=== PATIENT | male | born 1990 | race African-American/Black ===

== ENCOUNTER 2022-01-28 20:04 | Inpatient (IN) ==
[2022-01-28] MEDS ORDERED: dexAMETHasone**PF** 10 MG/ML VIAL IV ONE (22:24)
[2022-01-28] MEDS ORDERED: SODIUM CHLORIDE 0.9% 1000ML 1,000 ML IV ONE (22:24)
[2022-01-28] MEDS ORDERED: AMPICILLIN/SULBACTAM SOD 3,000 MG in 0.9 % SODIUM CHLORIDE 100 ML IV STA (22:24)
[2022-01-28 22:26] LABS: Basophils # (auto) 0.03 K/uL (0-0.2); Basophils % (auto) 0.2 %; Eosinophils # (auto) 0.27 K/uL (0-0.5); Eosinophils % (auto) 1.9 %; Hematocrit (blood only) 40.8 % (42-52); Hemoglobin 14.2 g/dL (14.0-18.0); Immature Granulocytes # (auto) 0.06 K/uL (0.00-0.02); Immature Granulocytes % (auto) 0.4 %; Lymphocytes # (auto) 1.36 K/uL (1.2-3.4); Lymphocytes % (auto) 9.5 %; Mean Corpuscular Hemoglobin 30.3 pg (25-34); Mean Corpuscular Hgb Conc 34.8 g/dL (32-36); Mean Corpuscular Volume 87.2 fL (80-100); Mean Platelet Volume 10.5 fL (7.4-10.4); Monocytes # (auto) 1.27 K/uL (0.11-0.59); Monocytes % (auto) 8.8 %; Neutrophils # (auto) 11.38 K/uL (1.4-6.5); Neutrophils % (auto) 79.2 %; Platelet Count 351 K/uL (130-400); RDW Coefficient of Variation 13.1 % (11.5-14.5); RDW Standard Deviation 41.8 fL (36.4-46.3); Red Blood Count 4.68 M/uL (4.7-6.1); White Blood Count 14.37 K/uL (4.8-10.8)
--- NOTE | 2022-01-28 22:30 | Emergency Department Note ---
History of Present Illness General Chief complaint: Head Injury, Minor Stated complaint: LEFTSIDE HEAD PAIN, WAS HERE THIS MORING Time Seen by Provider: 01/28/22 22:17 History of Present Illness Maximum Pain Intensity: 10 This 31 year old male patient presents to the ED today for evaluation of "left side head problems". Patient states he was here overnight for headache. He has been taking ibuprofen and cyclobenzaprine without relief of his symptoms. The patient states now he is experiencing pain into his jaw, left ear, and is having difficulty swallowing because "the left side is so swollen". Patient denies any fever but he has had chills all day today. He states his last dose of ibuprofen was at about 3 PM. He rates his pain 10/10 and states he generally feels weak. He denies any other associated symptoms. No chest pain or shortness of breath. He is able to swallow and tolerate his secretions. No history of similar symptoms. Home Medications Medication Instructions Recorded Confirmed Type cyclobenzaprine 10 mg tablet 10 mg PO TID PRN #14 tab 01/28/22 01/29/22 Rx ibuprofen 800 mg tablet 800 mg PO TID PRN #20 tab 01/28/22 01/29/22 Rx Allergies Allergy/AdvReac Type Severity Reaction Status Date / Time No Known Allergies Allergy Unverified 01/29/22 01:30 Past Med/Surg History Medical History No pertinent past medical history Social History Smoking Status: Current every day smoker Tobacco Type: Cigarettes and E-cigarettes / Vaping Hx Substance Use: No Preferred Language: Yi Communication Ability: Effective Earring Maker Required: No Beliefs That Will Affect Care: None Current Living Situation: Family Feels Safe at Home: Yes Safety Concerns: Feels Safe At This Time Review of Systems A total of 10 systems reviewed and were otherwise negative Physical Exam Vital Signs Vital Signs - 24 hr 01/28/22 20:35 01/28/22 21:49 01/28/22 23:02 Temperature 36.5 C Temperature Source Temporal Artery Scan Pulse Rate 81 Pulse Rate [Apical] 80 90 Pulse Rate from SpO2 Sensor Pulse Rhythm [Apical] Respiratory Rate 16 32 H 28 H Respiratory Effort / Characteristics Non-Labored Moaning Other Splinting (from pain) Respiratory Depth Normal Shallow Shallow Respiratory Pattern Blood Pressure 96/47 L Blood Pressure [Left Arm] 152/93 H 163/91 H Blood Pressure Mean 63 Blood Pressure Mean [Left Arm] 112 115 Pulse Oximetry 99 100 90 Oxygen Delivery Method Room Air Room Air Room Air Sepsis Recent Fever Within 48 Hours No Sepsis New/Unexplained Change in Mental Status No Sepsis Action Taken by Nursing No Action Required 01/29/22 01:22 01/29/22 01:30 01/29/22 02:00 Temperature Temperature Source Pulse Rate 79 88 Pulse Rate [Apical] 76 Pulse Rate from SpO2 Sensor 78 88 Pulse Rhythm [Apical] Regular Respiratory Rate 26 H 28 H 35 H Respiratory Effort / Characteristics Non-Labored Spontaneous Respiratory Depth Normal Respiratory Pattern Regular Blood Pressure 135/87 Blood Pressure [Left Arm] 135/87 Blood Pressure Mean 103 Blood Pressure Mean [Left Arm] 103 Pulse Oximetry 99 95 100 Oxygen Delivery Method Room Air Sepsis Recent Fever Within 48 Hours Sepsis New/Unexplained Change in Mental Status Sepsis Action Taken by Nursing VITALS: Vitals are noted on the nurse's note and reviewed by myself. Vital signs stable. GENERAL: This is a 31-year-old black male, in no acute distress, nondiaphoretic, well-developed well-nourished. SKIN: The skin was without rashes, erythema, edema, or bruising. There is no tenting of the skin. Capillary refill less than 2 seconds. HEAD: Normocephalic atraumatic. EARS: External auditory canals clear, tympanic membranes pearly parsons without erythema or effusion bilaterally. EYES: Pupils equal round and reactive to light and accommodation. Conjunctivae without injection, sclerae without icterus. Extraocular movements intact. NOSE: Patent, turbinates without inflammation or discharge. No sinus tenderness. MOUTH: Mucous membranes moist. Left tonsillar and peritonsillar edema with edema extending to the soft palate. This does cause some uvular deviation. There is erythema of the pharynx. No obvious exudate. Airway patent. Tongue does not deviate. NECK: Supple without nuchal rigidity. Anterior cervical lymphadenopathy. No thyromegaly. Cervical spine is nontender. No JVD. HEART: Regular rate and rhythm without murmurs gallops or rubs. LUNGS: Clear to auscultation bilaterally without wheezes, rales or rhonchi. No retractions or accessory muscle use. MUSCULOSKELETAL: No muscle atrophy, erythema, or edema noted. Full range of motion without joint tenderness in all extremities. No tenderness to palpation. Normal gait. Strength 5/5 throughout. NEURO: Patient was alert and oriented to person place and time. No focal neurological deficits. Course Course The patient was seen and evaluated as above. An order was placed for continuous cardiac monitoring. The monitor shows a normal sinus rhythm at a rate of 74 bpm. IV access obtained, labs drawn. Patient hydrated with IV fluids, medicated with Decadron, Unasyn. Patient was medicated with IV morphine and Zofran due to persistent pain and concern he would not be able to lie still for CT scan. Labs reviewed by myself. Imaging performed and reviewed by myself and radiologist as noted. I discussed the case with my attending physician. I discussed the findings with the patient at bedside. Mended admission and advised him that the CHAIN PEGGER would need to be drained. I discussed the case with Tavares Canela PA-C with [facility]. She was agreeable and will discuss the case with Dr. Henriquez to add him onto the schedule for tomorrow. I discussed the case with the manager state. Discussed the case with Dr. Middleton, [facility] hospitalist physician. He did agree to see the patient for admission. Administered Medications Ampicillin Sodium/Sulbactam Sodium 3,000 mg/ Sodium Chloride 108 mls @ 200 mls /hr IV Q6H [facility]; Protocol Stop: 02/08/22 05:59 Last Infusion: 01/29/22 13:18 Dose: 0 mls/hr Documented by: [id number] Admin: 01/29/22 12:45 Dose: 200 mls/hr Documented by: [id number] Infusion: 01/29/22 06:57 Dose: 0 mls/hr Documented by: [id number] Admin: 01/29/22 06:11 Dose: 200 mls/hr Documented by: [id number] Sodium Chloride (Nss 1000ml) 1,000 mls @ 75 mls/hr IV .[id number] ONE Stop: 01/29/22 17:59 Last Admin: 01/29/22 06:11 Dose: 75 mls/hr Documented by: [id number] Nicotine (Nicotine 21 Mg/24 Hr Tdsy) 21 mg TD QAM [facility] Stop: 02/28/22 04:39 Last Admin: 01/29/22 06:14 Dose: 21 mg Documented by: [id number] Tramadol HCl (Tramadol Hcl 50 Mg Tablet) 25 - 50 mg PO Q4H PRN PRN Reason: Pain Stop: 02/28/22 04:39 Last Admin: 01/29/22 05:32 Dose: 50 mg Documented by: [id number] Discontinued Medications Dexamethasone Sodium Phosphate (DexamethasonePf 10 Mg/Ml Vial) 10 mg IV NOW ONE Stop: 01/28/22 22:25 Last Admin: 01/28/22 22:33 Dose: 10 mg Documented by: [id number] Sodium Chloride (Nss 1000ml) 1,000 mls @ 999 mls/hr IV .Q1H1M ONE Stop: 01/28/22 23:24 Last Infusion: 01/29/22 01:23 Dose: 0 mls/hr Documented by: [id number] Admin: 01/28/22 22:33 Dose: 999 mls/hr Documented by: [id number] Ampicillin Sodium/Sulbactam Sodium 3,000 mg/ Sodium Chloride 108 mls @ 200 mls/hr IV NOW STA; Protocol Stop: 01/28/22 22:56 Last Infusion: 01/29/22 01:23 Dose: 0 mls/hr Documented by: [id number] Admin: 01/28/22 23:18 Dose: 200 mls/hr Documented by: [id number] Ioversol (Optiray 320 100ml) 100 ml IV ONCE ONE Stop: 01/28/22 23:45 Last Admin: 01/28/22 23:45 Dose: 93 ml Documented by: [id number] Ketorolac Tromethamine (Ketorolac Tromethamine 15 Mg/Ml Vial) 15 mg IV NOW STA Stop: 01/29/22 01:46 Last Admin: 01/29/22 01:56 Dose: 15 mg Documented by: [id number] Morphine Sulfate (Morphine Sulfate 4 Mg/Ml 1 Ml Carp\\Vial) 4 mg IV NOW STA Stop: 01/28/22 23:12 Last Admin: 01/28/22 23:18 Dose: 4 mg Documented by: [id number] Ondansetron HCl (Ondansetron Inj 2 Mg/Ml 2 Ml Vial) 4 mg IV NOW STA Stop: 01/28/22 23:12 Last Admin: 01/28/22 23:18 Dose: 4 mg Documented by: [id number] Medical Decision Making Differential Diagnosis Migraine headache, meningitis, sinusitis, CHAIN PEGGER, tonsillitis, otitis, CO exposure, ICH, SAH, infection, tumor, headache, sinus thrombosis, arterial dissection, as well as other pathologies. Medical Records Attestation: I reviewed the patient's medical records. Home Medications Current Medication List: was personally reviewed by me Laboratory Data Attestation: I reviewed the patient's lab results. Leukocytosis of 14,000. No anemia or thrombocytopenia. Renal, hepatic function and electrolytes without significant abnormality. Strep testing positive. Procalcitonin 0.09. COVID-19 testing negative. Result diagrams: 01/29/22 05:12 01/29/22 05:12 Lab Results 01/28/22 01/28/22 01/28/22 Range/Units 20:20 22:12 22:12 WBC 14.37 H (4.8-10.8) K/uL RBC 4.68 L (4.7-6.1) M/uL Hgb 14.2 (14.0-18.0) g/dL Hct 40.8 L (42-52) % MCV 87.2 (80-100) fL MCH 30.3 (25-34) pg MCHC 34.8 (32-36) g/dL RDW Std Deviation 41.8 (36.4-46.3) fL RDW Coeff of Anil 13.1 (11.5-14.5) % Plt Count 351 (130-400) K/uL MPV 10.5 H (7.4-10.4) fL Immature Gran % (Auto) 0.4 % Neut % (Auto) 79.2 % Lymph % (Auto) 9.5 % Ray % (Auto) 8.8 % Eos % (Auto) 1.9 % Baso % (Auto) 0.2 % Neut # (Auto) 11.38 H (1.4-6.5) K/uL Lymph # (Auto) 1.36 (1.2-3.4) K/uL Ray # (Auto) 1.27 H (0.11-0.59) K/uL Eos # (Auto) 0.27 (0-0.5) K/uL Baso # (Auto) 0.03 (0-0.2) K/uL Immature Gran # (Auto) 0.06 H (0.00-0.02) K/uL PT (9.0-12.0) Seconds INR (0.9-1.1) APTT (21.0-31.0) Seconds PTT Ratio Sodium 137 (136-145) mmol/L Potassium 4.1 (3.5-5.1) mmol/L Chloride 103 (98-107) mmol/L Carbon Dioxide 24 (21-32) mmol/L Anion Gap 10 (3-11) BUN 9 (6-23) mg/dl Creatinine 1.10 (0.6-1.4) mg/dl Est Cr Clr Drug Dosing 112.2 ml/min Est GFR ( Amer) 102.4 ml/min Est GFR (Non-Af Amer) 88.4 ml/min BUN/Creatinine Ratio 8.2 L (10-20) Glucose 86 (70-99(Fasting)) mg/dl Calcium 9.6 (8.5-10.1) mg/dl Total Bilirubin 0.6 (0.2-1.0) mg/dl AST 16 (13-39) U/L ALT 22 (7-52) U/L Alkaline Phosphatase 83 (34-104) U/L Total Protein 7.8 (6.0-8.3) gm/dl Albumin 4.4 (3.4-5.0) gm/dl Globulin 3.4 (2.5-4.0) gm/dl Albumin/Globulin Ratio 1.3 (0.9-2) Procalcitonin (0-0.5) ng/ml SARS-CoV-2, RNA, NAAT (NEGATIVE) Group A Strep (PCR) DETECTED A (NotDetected) 01/28/22 01/29/22 01/29/22 Range/Units Unknown 00:36 00:36 WBC (4.8-10.8) K/uL RBC (4.7-6.1) M/uL Hgb (14.0-18.0) g/dL Hct (42-52) % MCV (80-100) fL MCH (25-34) pg MCHC (32-36) g/dL RDW Std Deviation (36.4-46.3) fL RDW Coeff of Anil (11.5-14.5) % Plt Count (130-400) K/uL MPV (7.4-10.4) fL Immature Gran % (Auto) % Neut % (Auto) % Lymph % (Auto) % Ray % (Auto) % Eos % (Auto) % Baso % (Auto) % Neut # (Auto) (1.4-6.5) K/uL Lymph # (Auto) (1.2-3.4) K/uL Ray # (Auto) (0.11-0.59) K/uL Eos # (Auto) (0-0.5) K/uL Baso # (Auto) (0-0.2) K/uL Immature Gran # (Auto) (0.00-0.02) K/uL PT 11.1 (9.0-12.0) Seconds INR 1.0 (0.9-1.1) APTT 31.6 H (21.0-31.0) Seconds PTT Ratio 1.1 Sodium (136-145) mmol/L Potassium (3.5-5.1) mmol/L Chloride (98-107) mmol/L Carbon Dioxide (21-32) mmol/L Anion Gap (3-11) BUN (6-23) mg/dl Creatinine (0.6-1.4) mg/dl Est Cr Clr Drug Dosing ml/min Est GFR ( Amer) ml/min Est GFR (Non-Af Amer) ml/min BUN/Creatinine Ratio (10-20) Glucose (70-99(Fasting)) mg/dl Calcium (8.5-10.1) mg/dl Total Bilirubin (0.2-1.0) mg/dl AST (13-39) U/L ALT (7-52) U/L Alkaline Phosphatase (34-104) U/L Total Protein (6.0-8.3) gm/dl Albumin (3.4-5.0) gm/dl Globulin (2.5-4.0) gm/dl Albumin/Globulin Ratio (0.9-2) Procalcitonin 0.09 (0-0.5) ng/ml SARS-CoV-2, RNA, NAAT NEGATIVE (NEGATIVE) Group A Strep (PCR) (NotDetected) Imaging Data Radiologist's Impression: Soft Tissue Neck CT 01/28/22 22:24 CT soft tissue neck w con HISTORY: 31 years-old Male left sore throat, ?CHAIN PEGGER acute dysphasia with possible pharyngitis COMPARISON: None TECHNIQUE: Multiple axial CT images of the soft tissues of the neck were obtained following the intravenous ministration of 93 mL Optiray 320. A dose lowering technique was used consistent with the principals of JOSE L. FINDINGS: Moderate enlargement of the adenoid tonsils with enlargement of the left greater than right palatine tonsils. Streak artifact from dental amalgam hardware. There is an ill-defined fluid collection adjacent to left palatine tonsil measuring 1.9 x 1.2 x 2.0 cm. Moderate adjacent parapharyngeal edema extends into the lingula, parapharyngeal fat planes and inferiorly into the left aryepiglottic fold. There is partial opacification of the vallecula and piriform sinuses. Mucosal hyperemia also noted. The above findings result in near-complete effacement of the nasopharyngeal and upper oropharyngeal airway. The glottis and subglottic airway appears unremarkable. Normal thyroid, parotid and submandibular glands. Enlarged cervical chain lymph nodes measure up to 2.2 x 1.4 cm on the left. Residual thymic tissue anterior mediastinum. Unremarkable vascular structures of the neck. The imaged intracranial structures are unremarkable. No pneumothorax. Minimal mucosal thickening of the ethmoid and maxillary sinuses. Anterior endplate bridging osteophyte with mild intervertebral disc space narrowing noted at C6-C7. The mastoid air cells are clear. No acute fracture. IMPRESSION: 1. Enlargement of the adenoid, palatine and lingual tonsils compatible with acute tonsillitis/pharyngitis. There is a 2 cm peritonsillar abscess adjacent to left palatine tonsil with moderate adjacent parapharyngeal edema. 2. Above findings result in near-complete effacement of the nasopharyngeal and upper oropharyngeal airway. 3. Reactive cervical chain lymphadenopathy. ACT 112: Negative or not required by law. The above report was generated using voice recognition software. It may contain grammatical, syntax or spelling errors. Electronically signed by: Deepak Perry M.D. 01/29/2022 7:47 AM Patient: DALILA TOBAR(Male) : 88 Status: ER Date: 01/28/22 23:48 Room #: History: LEFT SIDE OF THROAT HURTS THE MOST, FEELS LIKE A BIG BALL STUCK IN THROAT HARD TO TALK AND SWALLOW Slices: [phone] Priors: Tech: Vicente Carbone @ [phone] Exams: CT NECK Contrast: IV Amt: 93 ML OPTIRAY 320 Accession Numbers: [id number] Referring Physician: REFERRED SELF Preliminar y Findings Only See Final Report For Complete Findings CT NECK: Extensive posterior nasopharyngeal adenoidal hypertrophy. Enlarged tonsillar adenoids left greater than right. Left peritonsillar abscess estimated to measure 1.7 cm. Localized moderate to severe airway narrowing the airway is deviated to the right. There is a left oropharyngeal submucosal edema which continues inferiorly to the level of the base of the left aryepiglottic fold. No retropharyngeal fluid. Left parapharyngeal fat infiltration. Bilateral reactive nodes. Trachea and upper lung hewitt are clear. No acute findings in the bones. Impression: Left peritonsillar abscess with adjacent inflammatory changes. Airway narrowing and displacement of the right. Radiologist: Jae Pavon M.D. Study ready at 23:50 and initial results transmitted at 00:48 Communications: Clear Time Type Notes 01/29/22 00:51 Call Doctor Regarding Above results, called Soni Escobar on 01/29 00:51 (-04:00) Blood Pressure Blood Pressure Findings: Normal blood pressure MDM Narrative This 31-year-old male patient presents to the emergency department today for evaluation of headache. The patient is complaining of left-sided facial pain now radiating to his ear and pain with swallowing. Patient clinically does have a peritonsillar abscess. CT imaging was performed to confirm this and was reviewed as noted. This for leukocytosis and strep testing was positive. Patient was hydrated, medicated with steroids and Unasyn. I did consult with ENT. I spoke with [facility] physician orthodontist assistant as noted. They will see the patient tomorrow to schedule drainage. The patient will be admitted overnight to the hospitalist service. Please see hospitalist dictation regard ing ongoing management care of this patient The chart was completed utilizing [employer] voice recognition software. Grammatical errors, random word insertions, pronoun errors, and incomplete se ntences are an occasional consequence of this system due to software limitations, ambient noise, and hardware issues. Any formal questions or concerns about the content, text, or information contained within the body of this dictation should be directly addressed to the provider for clarification. Impression & Plan Peritonsillar abscess, Strep pharyngitis Discharge Plan Visit Data Chief Complaint: Head Injury, Minor Stated Complaint: LEFTSIDE HEAD PAIN, WAS HERE THIS MORING ED Provider: Jessica Hinson ED Midlevel Provider: Rabia Escobar Discharge Problem: Peritonsillar abscess, Strep pharyngitis Patient Disposition: Admitted As Inpatient Discharge Instructions Interventions: ED Discharge Assessment Last Done: 01/29/22 07:39
[2022-01-28 22:49] LABS: Albumin Globulin Ratio 1.3 (0.9-2); Albumin Level 4.4 gm/dl (3.4-5.0); BUN Creatinine Ratio 8.2 (10-20); Bilirubin,Total 0.6 mg/dl (0.2-1.0); Calcium 9.6 mg/dl (8.5-10.1); Creatinine Clr Calc Pharmacy 112.2 ml/min; Est GFR (African American) 102.4 ml/min; Est GFR (Non-African American) 88.4 ml/min; Globulin 3.4 gm/dl (2.5-4.0); Potassium 4.1 mmol/L (3.5-5.1); Total Protein 7.8 gm/dl (6.0-8.3)
[2022-01-28] MEDS ORDERED: ONDANSETRON INJ 2 MG/ML 2 ML VIAL IV STA (23:11)
[2022-01-28] MEDS ORDERED: MoRPHine SULFATE 4 MG/ML 1 ML CARP\\VIAL IV STA (23:11)
[2022-01-28] MEDS ORDERED: OPTIRAY 320 100ml IV ONE (23:44)
[2022-01-29 01:05] LABS: Partial Thromboplastin Ratio 1.1; Partial Thromboplastin Time 31.6 Seconds (21.0-31.0); Prothrombin Time 11.1 Seconds (9.0-12.0)
--- NOTE | 2022-01-29 01:44 | History & Physical Report ---
Date of Service January 29, 2022 Assessment & Plan (1) Peritonsillar abscess: Plan: With encroachment on the airway as per CT report No overt sepsis for now Ongoing tobacco abuse Medical telemetry Unasyn ENT consult Re: Peritonsillar abscess (ER provider already in touch with provider customer sales consultant.) N.p.o. until patient seen by specialty in a.m. In anticipation of procedure. Nicotine patch as needed DVT prophylaxis. Lovenox subcu Full code Patient ex- requesting updates from providers. Ms. Lisa Aparicio, contact #[phone]. Text document was generated using [employer] recognition software. It may contain grammatical or spelling errors. Kindly contact undersigned for clarification of any documentation item in question. History of Present Illness Chief Complaint: Headache, odynophagia Primary Care Provider: MA [place], [place] History obtained from patient, family, and records. 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 Medical history significant for ongoing tobacco abuse. Patient has not been feeling well the last 6 days. Achy left-sided headache symptoms with left jaw pain. No chest pain, no SOB. Some trouble swallowing. Patient seen at the ER yesterday morning. CT head no acute abnormality. Patient discharged home. Patient did not feel well at work the whole day. Worsening symptoms without chest pain. Some shortness of breath. No fever, no chills. Patient had trouble opening his mouth. Patient returned to the ER. IV Unasyn and Decadron administered at the ER for left peritonsillar abscess. 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 Allergies Allergy/AdvReac Type Severity Reaction Status Date / Time No Known Allergies Allergy Unverified 01/29/22 01:30 Home Medications Medication Instructions Recorded Confirmed Type cyclobenzaprine 10 mg tablet 10 mg PO TID PRN #14 tab 01/28/22 01/29/22 Rx ibuprofen 800 mg tablet 800 mg PO TID PRN #20 tab 01/28/22 01/29/22 Rx Past Med/Surg History Medical History No pertinent past medical history Social History Smoking Status: Current every day smoker Tobacco Type: Cigarettes and E-cigarettes / Vaping Hx Substance Use: No Preferred Language: Spanish Communication Ability: Effective Property Site Manager Required: No Beliefs That Will Affect Care: None Current Living Situation: Family Feels Safe at Home: Yes Safety Concerns: Feels Safe At This Time Review of Systems Review of Systems: As per HPI, all other systems reviewed and negative Physical Exam Physical Exam: GENERAL: Comfortable, obese, no stridor, no respiratory distress SKIN: Normal color, warm HEENT: [place] palpebral conjunctivae, no ptosis, dry buccal mucosa, no trismus, left tonsillar enlargement NECK : Supple, short neck, left cervical tenderness CHEST : CTA, no tenderness HEART : RRR, no obvious murmurs ABDOMEN: Some distention, nontender EXTREMITIES : No LE swelling/tenderness, no other conspicuous deformities noted NEUROLOGIC : Coherent, no facial asymmetry, no other gross focality Results & Data Results & Data ([facility]) Vital Signs (Past 12 Hours) Vital Signs Temp Pulse Pulse Resp BP BP Pulse Ox 01/29/22 01:22 76 26 H 135/87 99 01/28/22 23:02 90 28 H 163/91 H 90 01/28/22 21:49 80 32 H 152/93 H 100 01/28/22 20:35 36.5 C 81 16 96/47 [address] soft tissue neck initial read: Extensive posterior nasopharyngeal adenoidal hypertrophy. Enlarged tonsillar adenoids left greater than right. Left peritonsillar abscess estimated to measure 1.7 cm. Localized moderate to severe airwaynarrowing the airwayis deviated to the right. There is a left oropharyngeal submucosal edema which continues inferiorlyto the level of the base of the left aryepiglottic fold. No retropharyngeal fluid. Left parapharyngeal fat infiltration. Bilateral reactive nodes. Trachea and upper lung hewitt are clear. No acute findings in the bones. Impression: Left peritonsillar abscesswith adjacent inflammatorychanges. Airwaynarrowing and displacement of the right.
[2022-01-29] MEDS ORDERED: KETOROLAC TROMETHAMINE 15 MG/ML VIAL IV STA (01:45)
[2022-01-29] MEDS ORDERED: PROMETHAZINE HCL 12.5 MG in SODIUM CHLORIDE 0.9% 50 ML IV PRN (04:40)
[2022-01-29] MEDS ORDERED: ACETAMINOPHEN 325 MG TAB PO PRN (04:40)
[2022-01-29] MEDS ORDERED: CYCLOBENZAPRINE HCL 10 MG TAB PO PRN (04:40)
[2022-01-29] MEDS ORDERED: traMADol HCL 50 MG TABLET PO PRN (04:40)
[2022-01-29] MEDS ORDERED: SODIUM CHLORIDE 0.9% 1000ML 1,000 ML IV ONE (04:40)
[2022-01-29] MEDS ORDERED: KETOROLAC TROMETHAMINE 15 MG/ML VIAL IV PRN (04:40)
[2022-01-29 05:24] LABS: Basophils # (auto) 0.02 K/uL (0-0.2); Basophils % (auto) 0.1 %; Hematocrit (blood only) 38.5 % (42-52); Hemoglobin 13.5 g/dL (14.0-18.0); Immature Granulocytes # (auto) 0.07 K/uL (0.00-0.02); Immature Granulocytes % (auto) 0.4 %; Lymphocytes # (auto) 0.71 K/uL (1.2-3.4); Lymphocytes % (auto) 4.1 %; Mean Corpuscular Hemoglobin 30.5 pg (25-34); Mean Corpuscular Hgb Conc 35.1 g/dL (32-36); Mean Corpuscular Volume 86.9 fL (80-100); Mean Platelet Volume 10.2 fL (7.4-10.4); Monocytes # (auto) 0.19 K/uL (0.11-0.59); Monocytes % (auto) 1.1 %; Neutrophils # (auto) 16.44 K/uL (1.4-6.5); Neutrophils % (auto) 94.3 %; Platelet Count 344 K/uL (130-400); RDW Coefficient of Variation 13.1 % (11.5-14.5); RDW Standard Deviation 42.4 fL (36.4-46.3); Red Blood Count 4.43 M/uL (4.7-6.1); White Blood Count 17.43 K/uL (4.8-10.8)
[2022-01-29 05:39] LABS: BUN Creatinine Ratio 8.5 (10-20); Calcium 8.9 mg/dl (8.5-10.1); Creatinine Clr Calc Pharmacy 116.5 ml/min; Est GFR (African American) 107.1 ml/min; Est GFR (Non-African American) 92.4 ml/min; Potassium 4.7 mmol/L (3.5-5.1)
[2022-01-29] MEDS: AMPICILLIN/SULBACTAM SOD 3,000 MG in 0.9 % SODIUM CHLORIDE 100 ML IV SCH ×4 (06:11→22:49)
[2022-01-29] MEDS: NICOTINE 21 MG/24 HR TDSY TD SCH (06:14)
--- NOTE | 2022-01-29 07:49 | CT Scan Report ---
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 A dose lowering technique was used consistent with the prin cipals of JOSE L. FINDINGS: Moderate enlargement of the adenoid tonsils with enlargement of the left greater than right palatine tonsils. Streak artifact from dental amalgam hardware. There is an ill-defined fluid collection adjac ent to left palatine tonsil measuring 1.9 x 1.2 x 2.0 cm. Moderate adjacent parapharyngeal edema exte nds into the lingula, parapharyngeal fat planes and inferiorly into the left aryepiglottic fold. Ther e is partial opacification of the vallecula and piriform sinuses. Mucosal hyperemia also noted. The a yoanna findings result in near-complete effacement of the nasopharyngeal and upper oropharyngeal airway . The glottis and subglottic airway appears unremarkable. Normal thyroid, parotid and submandibular g lands. Enlarged cervical chain lymph nodes measure up to 2.2 x 1.4 cm on the left. Residual thymic tissue anterior mediastinum. Unremarkable vascular structures of the neck. The imaged intracranial structures are unremarkable. No pneumothorax. Minimal mucosal thickening of the ethmoid and maxillary sinuses. Anterior endplate bridging osteophyte with mild intervertebral disc space kate rowing noted at C6-C7. The mastoid air cells are clear. No acute fracture. IMPRESSION: 1. Enlargement of the adenoid, palatine and lingual tonsils compatible with acute tonsillitis/pharyng itis. There is a 2 cm peritonsillar abscess adjacent to left palatine tonsil with moderate adjacent p arapharyngeal edema. 2. Above findings result in near-complete effacement of the nasopharyngeal and upper oropharyngeal ai rway. 3. Reactive cervical chain lymphadenopathy. ACT 112: Negative or not required by law. The above report was generated using voice recognition software. It may contain grammatical, syntax o r spelling errors. Electronically signed by: Deepak Perry M.D. 01/29/2022 7:47 AM
[2022-01-29] MEDS ORDERED: ENOXAPARIN INJ 40 MG/0.4 ML SYR SQ SCH (09:00)
[2022-01-29] MEDS ORDERED: LIDO/EPINEPHRINE/SOD BICARB 20 ML VIAL INFIL ONE (10:41)
--- NOTE | 2022-01-29 14:23 | ENT Consultation ---
Date of Consultation January 29, 2022 Assessment & Plan (1) Strep pharyngitis: - As patient is feeling 90% better and his phlegmon/abscess was at/under 2cm, will hold off on incision and drainage at this point -Recommend continue medical treatment. Ok for discharge from ENT standpoint on PO abx and a prednisone taper - I will see him back in my office when he returns to [place] the week of February 04. - He is planning on going back home to [place] when discharged. I did strongly encourage that if his symptoms worsened again while in [place] to go back to the ED (2) Peritonsillar abscess: see above History of Present Illness Attending Physician: Rock Resendiz MD History of Present Illness 31 yo male admitted to hospitalist service for a left sided peritonsillar abscess. Patient states that he has had a 6 day history of sore throat. He does not suffer from recurrent tonsillitis or recurrent strep throat. He did have a + strep swab in the ED last night. COVID negative. CT neck was performed in the ED and a 1.9cm phlegmon vs abscess was noted. He as treated with unasyn and IV steroids and states he feels 90% better today. He was having significant swallowing issues, with dysphagia and odynophagia, but this is resolved after medical therapy today. Allergies Allergy/AdvReac Type Severity Reaction Status Date / Time No Known Allergies Allergy Unverified 01/29/22 01:30 Home Medications Medication Instructions Recorded Confirmed Type cyclobenzaprine 10 mg tablet 10 mg PO TID PRN #14 tab 01/28/22 01/29/22 Rx ibuprofen 800 mg tablet 800 mg PO TID PRN #20 tab 01/28/22 01/29/22 Rx Patient History Medical History No pertinent past medical history Social History Smoking Status: Current every day smoker Tobacco Type: Cigarettes and E-cigarettes / Vaping Hx Substance Use: No Preferred Language: Filipino Communication Ability: Effective [employer] Supervisor Required: No Beliefs That Will Affect Care: None Current Living Situation: Family Feels Safe at Home: Yes Safety Concerns: Feels Safe At This Time Review of Systems Review of Systems: all other review of systems negative other than HPI Physical Exam Constitutional: AAOx3. NAD Eyes: EOMI ENMT: Tonsils are 3.5+ bilaterally. Uvula midline and no palatal edema on exam today. Neck: Range of motion normal Results & Data ([facility]) Vital Signs (Past 12 Hours) Vital Signs Temp Pulse Pulse Resp BP BP Pulse Ox 01/29/22 11:40 36.5 C 74 18 120/71 98 01/29/22 09:08 80 01/29/22 08:14 36.3 C L 74 18 131/90 99 01/29/22 07:39 89 16 107/61 97 01/29/22 06:40 70 18 97 01/29/22 05:12 71 18 113/81 98 01/29/22 04:44 68 22 113/81 98 01/29/22 03:00 74 17 94 01/29/22 02:30 79 17 127/73 44 L
[2022-01-29] MEDS ORDERED: dexAMETHasone 6 MG in SYRINGE 0 ML IV ONE (15:15)
--- NOTE | 2022-01-29 15:54 | Hospitalist Progress Note ---
Date of Service January 29, 2022 Assessment & Plan (1) Peritonsillar abscess: Plan: With encroachment on the airway as per CT report No overt sepsis for now -- Given additional Decadron 6 mg IV Continued on Unasyn IV --Evaluated by ENT Dr. Arguello Incision and drainage not recommended at this point Continue medical management --Advance diet today Continue IV Unasyn If continuing to improve tomorrow, discharge to home on Augmentin 875 mg twice daily x8 days to complete 10 days total course Follow-up with ENT Dr. Arguello after 1 week DVT prophylaxis. Lovenox held in case of procedure Full code plan of care discussed with patient in detail and at length all questions answered he is understanding, agreeable, comfortable with the plan of care Admission and Anticipated Discharge Date Admission Date: January 29, 2022 Subjective ff up for peritonsillar cellulitis and abscess, etc seen resting in bed, comfortable no trouble breathing anymore, back to baseline Able to swallow his saliva better, able to swallow tramadol pills this morning Headache has resolved No fevers or chills, shortness of breath, palpitations, chest pain, dizziness, abdominal pain No other symptoms Review of Systems Review of Systems: all noted and negative except for above Physical Exam Physical Exam: General- oriented x 3, not in distress, speaks in sentences with no effort or accessory muscle use Head- atraumatic Eyes- PERRL, EOMI, anicteric ENT-oropharynx: Significant edema of oropharynx Neck- supple, no JVD, (+) lymphadenopathy, no thyromegaly; carotids +2/2, no bruits appreciated Lungs- clear to auscultation bilaterally, no rales/wheezes Heart- normal rate, regular rhythm; no murmur, no gallop, no rub appreciated Abdomen- normal bowel sounds, nondistended, soft, nontender, no masses or hepatosplenomegaly Extremities- no pretibial edema, no calf tenderness; peripheral pulses intact Neuro- alert, oriented x 3; CN 2-12 grossly intact; motor 5/5 bilaterally;sensation 100% on all extremities; no other gross focal neurologic deficits Skin- warm & dry Results & Data Results & Data ([facility]) Vital Signs (Past 12 Hours) Vital Signs Temp Pulse Pulse Resp BP BP Pulse Ox 01/29/22 15:08 83 01/29/22 11:40 36.5 C 74 18 120/71 98 01/29/22 09:08 80 01/29/22 08:14 36.3 C L 74 18 131/90 99 01/29/22 07:39 89 16 107/61 97 01/29/22 06:40 70 18 97 01/29/22 05:12 71 18 113/81 98 01/29/22 04:44 68 22 113/81 98 all noted and reviewed including below
[2022-01-29] MEDS ORDERED: SODIUM CHLORIDE 0.9% 1000ML 1,000 ML IV SCH (18:00)
[2022-01-29] MEDS ORDERED: LORazepam 0.5 MG TAB PO PRN (23:08)
[2022-01-30] MEDS: AMPICILLIN/SULBACTAM SOD 3,000 MG in 0.9 % SODIUM CHLORIDE 100 ML IV SCH (05:59)
[2022-01-30] MEDS: NICOTINE 21 MG/24 HR TDSY TD SCH (10:19)
--- NOTE | 2022-01-30 12:44 | Discharge Summary ---
Date of Service January 30, 2022 Admission HPI Per Admitting Provider History obtained from patient, family, and records. 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 Medical history significant for ongoing tobacco abuse. Patient has not been feeling well the last 6 days. Achy left-sided headache symptoms with left jaw pain. No chest pain, no SOB. Some trouble swallowing. Patient seen at the ER yesterday morning. CT head no acute abnormality. Patient discharged home. Patient did not feel well at work the whole day. Worsening symptoms without chest pain. Some shortness of breath. No fever, no chills. Patient had trouble opening his mouth. Patient returned to the ER. IV Unasyn and Decadron administered at the ER for left peritonsillar abscess. 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 Arguello Incision and drainage not recommended at this point Continue medical management --Advance diet today Continue IV Unasyn If continuing to improve tomorrow, discharge to home on Augmentin 875 mg twice daily x8 days to complete 10 days total course Follow-up with ENT Dr. Arguello after 1 week DVT prophylaxis. 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 Discharge Diagnosis: Peritonsillar abscess: Activity: Resume your previous activity Non-emergency contact: Primary Care Provider Call non-emergency contact if: you have any medication questions, your symptoms worsen, you have a fever and your temperature is above 101 Follow-up/Referrals: PCP,NO [Primary Care Provider] - Diet: Regular Addtl Attending Provider Instructions: Follow up with your primary care provider within 1 week Follow up with your ear, nose and throat doctor Jos Domínguez, [place] [id number] Complete the course of the antibiotic with Augmentin Seek urgent medical attention if your symptoms worsening or develop any shortness of breath Pending Studies at Discharge: No Stand-Alone Forms: My [facility] Medxnote, Work/School Release, Smoking Cessation Medications and DC Order Prescriptions: New amoxicillin-pot clavulanate 875-125 mg tablet 1 tab PO Q12H 8 Days Qty: 16 RF: 0 Continued ibuprofen 800 mg tablet 800 mg PO TID PRN (Reason: pain) Qty: 20 RF: 0 cyclobenzaprine 10 mg tablet 10 mg PO TID PRN (Reason: muscle spasm) Qty: 14 RF: 0 Discharge Orders: Discharge Order (Routine); Ordered 01/30/22 Ordered By: Senait Hill Admission Data Admit Date/Time: 01/29/22 02:29 Attending Provider: Senait Hill Admit Provider: Nito Middleton Primary Care Provider: PCP,NO Other Providers: Anish Arguello ; Nito Middleton ; [facility] ; Rock Resendiz
== END 2022-01-30 14:25 | disposition home or self-care (01) | DRG 153 ==
LOC: ED 20:04 → EDINP 01-29 02:29 → SUATTDRO 01-29 02:29 → 2N 01-29 07:39